=== PATIENT | female | born 1955 | race Caucasian/White ===

== ENCOUNTER 2018-05-11 11:17 | Emergency (ER) | payer BC ==
[~2018-05-11] VITALS: Ht 182.9 cm; Wt 68.0 kg
[2018-05-11 11:34] VITALS: BP 155/99
[2018-05-11] MEDS ORDERED: KETOROLAC TROMETH 60MG/2ML VIAL IM ONE (13:30)
== END 2018-05-11 13:57 | disposition home or self-care (01) ==
LOC: ER 11:21
DX: S00.83XA Contusion of other part of head, initial encounter (principal); I10 Essential (primary) hypertension; Z88.0 Allergy status to penicillin; V86.56XA Driver of dirt bike or motor/cross bike injured in nontraffic accident, initial encounter; Y93.89 Activity, other specified; Y99.8 Other external cause status; Y92.89 Other specified places as the place of occurrence of the external cause
CPT/HCPCS: 70140; 96372; 99284; J1885